=== PATIENT | female | born 1985 | race Caucasian/White ===

== ENCOUNTER → 2016-08-23 | Outpatient (REF) ==
[~2016-08-23] MED LIST: ALEVE 220MG220 MG PO; ALPRAZOLAM; FIORICET 325 MG1 TA1; NO HOME MEDICATIONS; NORCO 325 MG-51 TAB PO; NORCO 325 MG-7.1 TAB PO; PEN-VEE K500 MG PO; TYLENOL PM EXTR1 TA1; ZANTAC 7575 MG
[2016-08-23 16:32] LABS: THYROID STIMULATING HORMONE 1.14 uIU/mL (0.465-4.680)
== END ==
LOC: ZLAB.WCH 15:52
PROVIDERS: Family Medicine
DX: Z01.89 Encounter for other specified special examinations (principal)

== ENCOUNTER → 2016-08-24 | Outpatient (REF) ==
[2016-08-24 12:43] LABS: CHLAMYDIA/TRACH by PCR Female NOT DETECTED; NEISSERIA GON by PCR Female NOT DETECTED
== END ==
LOC: ZLAB.WCH 10:47
PROVIDERS: Family Medicine
DX: Z01.89 Encounter for other specified special examinations (principal)

== ENCOUNTER → 2016-10-31 | Outpatient (REF) | LOC: ZLAB.WCH 08:55 | DX: Z01.89 Encounter for other specified special examinations (principal) ==

== ENCOUNTER 2017-09-16 22:01 | Emergency (ER) | payer OTHER, MEDICAID ==
[~2017-09-16] VITALS: Ht 157.5 cm; Wt 47.7 kg
[2017-09-16 22:14] VITALS: BP 129/78; TEMP 98.6
[2017-09-16 22:43] LABS: BASO # 0.1 (0.0-0.2); BASO % 0.7 % (0.0-2.0); EOS # 0.3 (0.0-0.7); EOS % 2.2 % (0-4.0); GRAN # 7.8 (1.4-6.5); GRAN % 69.6 % (42.2-75.2); HEMATOCRIT 38.2 % (37.0-47.0); LYMPH # 2.2 (1.2-3.4); LYMPH % 19.9 % (20.0-51.0); MEAN CELL VOLUME 86 fl (80.0-100.0); MEAN CORPUSCULAR HEMOGLOBIN 29 pg (27.0-31.0); MEAN CORPUSCULAR HGB CONC 34 g/dl (33.0-37.0); MEAN PLATELET VOLUME 9.8 fl (7.4-10.4); MONO # 0.8 (0.1-0.6); MONO % 7.2 % (1.7-9.3); PLATELET COUNT 272 K/mm3 (130-400); RED BLOOD COUNT 4.42 M/mm3 (4.10-5.30); REDCELL DISTRIBUTION WIDTH-CV 11.8 % (11.5-14.5)
[2017-09-16 23:02] LABS: ALANINE AMINOTRANSFERASE 113 U/L (9-52); ALCOHOL(ethanol),MEDICAL < 10 mg/dL; ALKALINE PHOSPHATASE 108 U/L (50-136); ANION GAP 13 mmol/L (7-16); AST,SGOT 136 U/L (15-37); BILIRUBIN,TOTAL 0.2 mg/dL (0.0-1.0); BLOOD UREA NITROGEN 11 mg/dL (7-17); CARBON DIOXIDE 25 mmol/L (22-30); CHLORIDE 103 mmol/L (98-107); CREATININE, serum 0.65 mg/dL (0.52-1.25); GLUCOSE 96 mg/dL (74-106); POTASSIUM 3.3 mmol/L (3.4-5.0); SODIUM 142 mmol/L (137-145); TOTAL PROTEIN 7.5 gm/dL (6.4-8.2)
[2017-09-17 00:38] LABS: COLLECTION METHOD CLEAN CATCH
[2017-09-17 00:50] LABS: MUCOUS Present /lpf; PH 6 (5-8); SQUAMOUS EPITHELIAL 20-50 /hpf; URINE APPEARANCE Cloudy; URINE BACTERIA Rare /hpf; URINE BILIRUBIN Negative (NEGATIVE); URINE BLOOD Negative (NEGATIVE); URINE COLOR Yellow; URINE GLUCOSE Negative (NEGATIVE); URINE KETONE Negative (NEGATIVE); URINE LEUKOCYTE ESTERASE Negative (NEGATIVE); URINE NITRATE Negative (NEGATIVE); URINE PROTEIN(semi-quant) Negative (NEGATIVE); URINE RBC 0-2 /hpf; URINE UROBILINOGEN Negative (NEGATIVE)
[2017-09-17 00:55] LABS: TRICYCLIC ANTIDEPRESS URINE NEGATIVE
[2017-09-17 01:02] VITALS: PULSE 96
== END 2017-09-17 01:02 | disposition home or self-care (01) ==
LOC: COL.ER 22:01
PROVIDERS: Emergency Medicine
DX: S20.211A Contusion of right front wall of thorax, initial encounter (principal); S20.221A Contusion of right back wall of thorax, initial encounter; F15.10 Other stimulant abuse, uncomplicated; G40.909 Epilepsy, unspecified, not intractable, without status epilepticus; Z23 Encounter for immunization; Y04.8XXA Assault by other bodily force, initial encounter; Y92.009 Unspecified place in unspecified non-institutional (private) residence as the place of occurrence of the external cause
CPT/HCPCS: J2765; J3010; J7030

== ENCOUNTER → 2019-02-22 | Outpatient (CLI) | payer MEDICAID | LOC: COL.RAD 12:19 | DX: R10.2 Pelvic and perineal pain (principal) ==

== ENCOUNTER → 2019-12-28 | Outpatient (CLI) | payer SELFPAY | LOC: ZCOL.LAB 15:29 | DX: Z20.828 Contact with and (suspected) exposure to other viral communicable diseases (principal) ==

== ENCOUNTER 2023-09-27 14:38 | Emergency (ER) | payer OTHER ==
[~2023-09-27] VITALS: Ht 162.6 cm; Wt 54.5 kg
[~2023-09-27 14:38] MED LIST changes: +PROMETHAZINE D118 ML PO
[2023-09-27 14:42] VITALS: TEMP 98
[2023-09-27] MEDS ORDERED: Amoxicillin/Clavulanate K+ 875/125 MG TAB PO ONE (15:15)
[2023-09-27] MEDS ORDERED: Ketorolac 30 MG/ML VIAL IM ONE (15:15)
[2023-09-27] MEDS ORDERED: AMOXICILLIN 8751 TAB PO (15:34)
[2023-09-27] MEDS ORDERED: NORCO 325 MG-51 TAB PO (15:34)
[2023-09-27 16:09] VITALS: BP 125/95; PULSE 87
== END 2023-09-27 16:09 | disposition home or self-care (01) ==
LOC: COL.ER 14:38
DX: S61.452A Open bite of left hand, initial encounter (principal); S61.451A Open bite of right hand, initial encounter; W54.0XXA Bitten by dog, initial encounter
CPT/HCPCS: J1885